=== PATIENT | male | born 1985 | race Two or more races ===

== ENCOUNTER 2025-02-17 21:12 | Emergency (ER) | payer MEDICAID, OTHER ==
[~2025-02-17] VITALS: Ht 170.2 cm; Wt 81.7 kg
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
[2025-02-17 21:43] VITALS: BP 155/98; PULSE 103; RESP 18; TEMP 98.6; O2SAT 98
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
[2025-02-17 22:30] LABS: Hematocrit 41.5 % (41.0-53.0); Hemoglobin 14.1 g/dL (13.5-17.5); Mean Corpuscular Hemoglobin 29.4 pg (28.0-32.0); Mean Corpuscular Volume 86.6 fL (80.0-100.0); Nucleated Red Blood Cells % 0.0 %
[2025-02-17 22:38] LABS: Alanine Aminotransferase 16 U/L (7-40); Alkaline Phosphatase 50 U/L (46-116); Anion Gap 8 (5-15); BUN/Creatinine Ratio 11.3 (10.0-20.0); Blood Urea Nitrogen 11 mg/dL (9-23); Calcium 9.2 mg/dL (8.7-10.4); Carbon Dioxide 28 mmol/L (20-31); Chloride 105 mmol/L (98-107); Glucose 85 mg/dL (74-106); Potassium 3.8 mmol/L (3.5-5.1); Sodium 141 mmol/L (136-145); Total Protein 7.1 g/dL (5.7-8.2)
[2025-02-17 22:39] LABS: Albumin 4.5 g/dL (3.2-4.8); Bilirubin, Total 0.5 mg/dL (0.2-1.0)
[2025-02-17] MEDS: ceFAZolin 1GM/50ML 50 ML IV ONE (23:48)
== END 2025-02-17 23:52 | disposition left against medical advice (07) ==
LOC: EDBD 21:12 → ER 21:12
DX: S02.85XA Fracture of orbit, unspecified, initial encounter for closed fracture (principal); S02.401A Maxillary fracture, unspecified side, initial encounter for closed fracture; S00.03XA Contusion of scalp, initial encounter; Z90.49 Acquired absence of other specified parts of digestive tract; Z88.2 Allergy status to sulfonamides; Y08.89XA Assault by other specified means, initial encounter; Y93.89 Activity, other specified; Y92.89 Other specified places as the place of occurrence of the external cause; Y99.8 Other external cause status
CPT/HCPCS: 36415; 70450; 70486; 71045; 71250; 72125; 80053; 83605; 85025